=== PATIENT | female | born 1980 | race Caucasian/White ===

== ENCOUNTER 2018-09-13 13:09 | Emergency (ER) | payer MEDICAID ==
[~2018-09-13] VITALS: Ht 152.4 cm; Wt 73.9 kg
[2018-09-13 13:30] VITALS: Ht 152.4 cm; Wt 73.9 kg
[2018-09-13 15:55] VITALS: BP 138/92
== END 2018-09-13 16:24 | disposition home or self-care (01) ==
LOC: ED 13:09
DX: B35.6 Tinea cruris (principal); E66.01 Morbid (severe) obesity due to excess calories; Z68.31 Body mass index [BMI] 31.0-31.9, adult
CPT/HCPCS: 82962